=== PATIENT | female | born 1975 | race Caucasian/White ===

== ENCOUNTER 2017-01-03 08:30 | Outpatient (CLI) | payer OTHER | END 2017-01-03 23:00 | LOC: LAB SRH 08:30 | DX: N95.9 Unspecified menopausal and perimenopausal disorder (principal); K62.89 Other specified diseases of anus and rectum; L21.9 Seborrheic dermatitis, unspecified; R92.8 Other abnormal and inconclusive findings on diagnostic imaging of breast; L30.9 Dermatitis, unspecified | CPT/HCPCS: 90074; 90100; 92690; 93045; 93140; 95059 ==

== ENCOUNTER 2017-01-16 09:53 | Outpatient (CLI) | payer OTHER ==
--- NOTE | 2017-01-16 12:42 | DIAGNOSTIC IMAGING REPORT ---
PROCEDURE: MG BILATERAL SCREENING W/CAD INDICATION: SCREENING TECHNIQUE: Standard CC and MLO views bilaterally. Computer aided detection was used. COMPARISON: 09/04/2015, 06/28/2015 FINDINGS: Dense fibroglandular tissue is present bilaterally. No developing densities, areas of architectural distortion, or suspicious microcalcifications. IMPRESSION: 1. Stable mammograms without radiographic evidence of malignancy. RESULT CODE: 1- Negative. A. A negative report should not delay biopsy if a dominant or clinically suspicious mass is present. 10-15% of cancers are not identified by x-ray. B. A negative report may reinforce clinical impression. C. Adenosis and dense breasts may obscure an underlying neoplasm. D. False positive reports average 6-10%. E.. A yearly screening mammogram is recommended. A reminder letter will be scheduled.
== END 2017-01-16 23:00 ==
LOC: MAM SRH 09:53
DX: Z12.31 Encounter for screening mammogram for malignant neoplasm of breast (principal)